=== PATIENT | male | born 1955 | race Caucasian/White ===

== ENCOUNTER → 2018-09-03 | Day surgery (SDC) | payer BC ==
[~2018-09-03] VITALS: Ht 171.4 cm; Wt 96.2 kg
[~2018-09-03] MED LIST: ASPI81TA50 PO; ATOR20TA58 PO; BUPIVACAINE-EPI 0.5%-1:200000 50 ML VIAL. ONE; DEXAMETHASONE SOD PHOS 20 MG/5 ML VIAL. ONE; FEXO180T16 PO; GLUCOSAMINE 1,1 EACH PO; HYDR-971 PO; HYDR200T5 PO; HYDROcodone/APAP 5/325MG 1 TAB TABLET ONE; HYDROcodone/APAP 5/325MG 1 TAB TABLET PO PRN; HYDROmorphone 2 MG/ML VIAL IV PRN; IV RINGERS,LACTATED 1000ML 1,000 ML IV SCH; KETOROLAC 30 MG/ML INJ FOR OR. INJ ONE; LIDOCAINE 1% PF 2 ML VIAL. ID PRN; LOSA25TA5 PO; MORPHINE SULFATE 2 MG/ML VIAL. IV PRN; MULT1TAB52 PO; OMEG-165 PO; ONDANSETRON PF 4 MG/2 ML VIAL. IV PRN; ONDANSETRON PF 4 MG/2 ML VIAL. ONE; PRED5TAB PO; PROCHLORPERAZINE 10 MG/2 ML VIAL. IV PRN; PROPOFOL 20 ML IV ONE; ROCURONIUM 50 MG/5 ML VIAL. ONE; SEVOFLURANE 31 TO 60 MINUTES. IH ONE; TRIA1TAB3 PO; VITA400C36 PO; ePHEDrine PF IN SALINE 50 MG/5 ML DISP.SYRIN IV ONE; fentaNYL PF VIAL 100 MCG/2 ML VIAL IV PRN; fentaNYL PF VIAL 100 MCG/2 ML VIAL ONE
--- NOTE | 2018-09-03 10:36 | PDOC4 ---
Operative Note Operative Note Date: 09/03/2018 Preoperative diagnosis: Umbilical hernia Postoperative diagnosis: Same Procedure: Umbilical hernia repair Surgeon: Nelson Specimen: None Dictation: Patient is a 62-year-old gentleman complaining of a painful bulge at his umbilicus procedure of umbilical hernia repair was explained to the patient detail was benefits were also discussed including bleeding infection alternatives to this procedure also discussed with the patient seemed understanding gave both verbal and written consent to have the procedure performed. Patient was taken to the operating room placed in supine position general anesthesia was initiated once patient was asleep and intubated his abdomen was prepped and draped usual sterile fashion using ChloraPrep. An area around the umbilicus injected with quarter percent Marcaine with epinephrine incision made 15 blade scalpel was carried down through the subtendinous tissue using electrocautery right hemostasis down to the fascia. The incarcerated omentum was returned to the abdomen and the fascia was closed with 0 Vicryl suture in a far near near far fashion. The subcutaneous layer was closed with a running 3-0 Vicryl and the skin was approximate 4 septic Monocryl mass all Steri -Strips and island dressings were applied. Patient was waken expanded in the operating room taken recovery in stable condition all sponge instrument needle counts listed as correct estimated blood loss 5 mL PAM CAMERON MD Sep 03, 2018 10:36
--- NOTE | 2018-09-03 10:37 | DISCH ---
DISCHARGE INSTRUCTIONS Condition on Discharge Condition on Discharge: Stable Activity After Discharge Activity Instructions for Disc: Avoid exertion Other activity instructions: no lifting more than 20 pounds for 2 weeks Diet after Discharge Diet after Discharge: Regular Wound Incision Care Other wound/incision instructi: May shower in 24 hours Contacting the DRAlfonso after DC Call your doctor for: If your condition worsens Follow-Up Follow up with: Dr. Cameron in 2 weeks PAM CAMERON MD Sep 03, 2018 10:37
[2018-09-03 11:40] VITALS: BP 142/73
== END | disposition home or self-care (01) ==
LOC: SURG 08:29
PROVIDERS: ATTEND Surgery
DX: K42.0 Umbilical hernia with obstruction, without gangrene (principal); I10 Essential (primary) hypertension; E11.21 Type 2 diabetes mellitus with diabetic nephropathy; Z98.890 Other specified postprocedural states; Z87.891 Personal history of nicotine dependence; Z72.89 Other problems related to lifestyle; Z79.84 Long term (current) use of oral hypoglycemic drugs; Z79.82 Long term (current) use of aspirin; Z79.899 Other long term (current) drug therapy
CPT/HCPCS: 49587; A7015; J0690; J1100; J1885; J2405; J2704; J3010

== ENCOUNTER 2021-09-27 10:31 | Day surgery (SDC) | payer MEDICARE, BC ==
[~2021-09-27] VITALS: Ht 171.4 cm; Wt 92.5 kg
[~2021-09-27 10:31] MED LIST changes: -BUPIVACAINE-EPI 0.5%-1:200000 50 ML VIAL. ONE; -DEXAMETHASONE SOD PHOS 20 MG/5 ML VIAL. ONE; +HYDR-3164 PO; -HYDR-971 PO; -HYDROcodone/APAP 5/325MG 1 TAB TABLET ONE; -HYDROcodone/APAP 5/325MG 1 TAB TABLET PO PRN; -HYDROmorphone 2 MG/ML VIAL IV PRN; +HYDROmorphone 2 MG/ML VIAL IVP PRN; -KETOROLAC 30 MG/ML INJ FOR OR. INJ ONE; -LIDOCAINE 1% PF 2 ML VIAL. ID PRN; -LOSA25TA5 PO; +LOSA25TA54 PO; +MORPHINE SULFATE 2 MG/ML INJ. IVP PRN; -MORPHINE SULFATE 2 MG/ML VIAL. IV PRN; +MULT-445 PO; -MULT1TAB52 PO; -ONDANSETRON PF 4 MG/2 ML VIAL. IV PRN; -ONDANSETRON PF 4 MG/2 ML VIAL. ONE; -PROCHLORPERAZINE 10 MG/2 ML VIAL. IV PRN; +PROCHLORPERAZINE 10 MG/2 ML VIAL. IVP PRN; -PROPOFOL 20 ML IV ONE; -ROCURONIUM 50 MG/5 ML VIAL. ONE; -SEVOFLURANE 31 TO 60 MINUTES. IH ONE; +VITA-8 PO; -VITA400C36 PO; -ePHEDrine PF IN SALINE 50 MG/5 ML DISP.SYRIN IV ONE; -fentaNYL PF VIAL 100 MCG/2 ML VIAL IV PRN; +fentaNYL PF VIAL 100 MCG/2 ML VIAL IVP PRN; -fentaNYL PF VIAL 100 MCG/2 ML VIAL ONE
[2021-09-27] MEDS ORDERED: PROPOFOL 10 MG/ML (20ML) VIAL. IV ONE ×2 (10:52→10:55)
[2021-09-27] MEDS ORDERED: ONDANSETRON PF 4 MG/2 ML VIAL. ONE (10:55)
[2021-09-27] MEDS ORDERED: DEXAMETHASONE SOD PHOS 4 MG/ML VIAL ONE (10:55)
[2021-09-27] MEDS ORDERED: LIDOCAINE 2% PF 5 ML VIAL. ONE (10:55)
[2021-09-27] MEDS ORDERED: HYDROmorphone 2 MG/ML VIAL ONE (10:56)
[2021-09-27 11:07] VITALS: BP 145/70
[2021-09-27] MEDS ORDERED: HYDR-2145 PO (11:13)
[2021-09-27] MEDS ORDERED: BUPIVACAINE MPF 0.25% 30 ML VIAL. ONE (12:38)
[2021-09-27] MEDS ORDERED: BACITRACIN TOPICAL OINT PACKET. TP ONE (12:38)
[2021-09-27] MEDS ORDERED: BUPIVACAINE MPF 0.25% 10 ML VIAL. INJ ONE (13:14)
[2021-09-27] MEDS ORDERED: fentaNYL PF VIAL 100 MCG/2 ML VIAL ONE (15:30)
[2021-09-27] MEDS ORDERED: OXYC-325 PO (15:42)
[2021-09-27] MEDS ORDERED: GABA300C18 PO (15:42)
[2021-09-27] MEDS ORDERED: CEPH500C PO (15:42)
[2021-09-27 15:54] VITALS: BP 118/67
--- NOTE | 2021-10-01 23:09 | PDOC4 ---
OPERATIVE NOTE Date: Date: Sep 27, 2021 Pre-Op Diagnosis: Bilateral carpal tunnel syndrome and right cubital tunnel syndrome Post-Op Diagnosis: Same Procedure Performed: 1. Right carpal tunnel release, CPT 62240 x one unit 2. Right cubital tunnel release, CPT 37732 x one unit Surgeon: Anne Sanchez MD Anesthesia Type: MAC + local Blood Loss: 20mL Specimans Obtained: None Findings: See operative note Complications: See operative note Operative Note: Indications This is a patient with a longstanding history of moderate to severe bilateral carpal tunnel syndrome and right cubital tunnel syndrome with no response to conservative management. The patient underwent informed consent discussing the benefits, alternatives, and risks including but not limited to the risks of bleeding, infection, persistent pain postoperatively, incomplete release, injury to nerves/vessels/tendons, need for revision procedures. Procedure After informed consent was verified, the patient was taken to the operating room and placed on the OR table in the supine position. The right forearm was extended and supinated on the hand table. A timeout was performed verifying the correct patient and correct procedure. MAC sedation was provided by the anesthesia team. The patient was prepped and draped in the usual sterile fashion. A sterile tourniquet was placed and inflated to 100 mmHg higher than the patient's average systolic pressure. The hand was placed in a lead hand. The carpal tunnel was injected with 1% lidocaine with 1: 100,000 epinephrine. The skin was incised with a #15 scalpel for approximately 3 cm just ulnar to the thenar crease in the intersection of the Villa's line and the radial border of the ring finger. The incision was carried proximally and just distal to the flexion wrist crease. Tenotomy scissors were used to longitudinally spread the subcutaneous tissues and through the superficial palmar fascia to expose the transverse carpal ligament. A #15 scalpel was used to make a small longitudinal incision in the carpal tunnel. The median nerve was identified. A Midland elevator was inserted into the small incision in the carpal tunnel to depress the median nerve. Tenotomy scissors were then inserted in the incision of the transverse carpal ligament. Division of the ligament proceeded from proximal to distal up to the adipose tissue of the superficial palmar arch. Care was taken to avoid injury to the superficial palmar arch. Attention was then turned proximally where a right angle retractor was placed to retract soft tissues above the proximal portion of the transverse carpal ligament. The Midland elevator was again inserted and advanced proximally to depress the nerve. Tenotomy scissors were then used to release the proximal transverse carpal ligament until full opening of the tunnel was observed under direct vision. The wound was irrigated with saline and was reexamined prior to closure. At that time it was noted that there was a laceration of the median nerve with exposed fascicles limited anteriorly. An epineurial repair was performed with 6-0 Prolene suture in interrupted fashion. Attention was then turned to right cubital tunnel. The right arm was bent at the elbow, externally rotated, abducted, and a longitudinal line was redrawn between the tip of the olecranon and medial epicondyle extending 4 cm proximally and 4 cm distally. A #15 scalpel was used to incise the 8 cm incision which was drawn midway between the medial epicondyle and the olecranon. Dissection through the subcutaneous tissues and fat was deepened down to the level of the medial epicondyle while paying careful attention to preserve the medial antebrachial cutaneous nerve. The ulnar nerve was identified below the intermuscular septum proximal to the medial epicondyle. The septum was entered and retracted and the ulnar nerve was dissected free proximally up to the point that it pierced the intermuscular septum. The arcade of [place] was also divided proximally. Dissection then turned distally where the fibroaponeurotic coverings and cubital tunnel retinaculum were divided. The dissection proceeded deeply through the fascia of the superficial and deep flexor carpi ulnaris heads, exposing the nerve. Care was taken to prevent injury to the ulnar nerve and the motor branches to the flexor carpi ulnaris and flexor digitorum profundus. The fascia of the flexor carpi ulnaris muscle was released. Distally, the pronator and flexor digitorum superficialis arch fascia were also incised to relieve any compression on the ulnar nerve. The area was palpated to confirm that the ulnar nerve was free from compression with minimal traction. Range of motion of the elbow indicated no snapping over the medial epicondyle. The tourniquet was released and total tourniquet time recorded. The wounds were irrigated. Hemostasis was achieved with electrocautery. The incisions were then closed with 4-0 nylon interrupted horizontal mattress sutur es. Incisions were covered with bacitracin, Xeroform, and gauze. A dorsal blocking splint made of plaster was fashioned and secured in place with soft roll and an Edi bandage. The arm was placed in a sling. The patient tolerated the procedure well and was taken to the recovery room in stable condition. All needle, instrument, and sponge counts were correct. ANNE SANCHEZ MD Oct 01, 2021 23:09
== END 2021-09-27 16:41 | disposition home or self-care (01) ==
LOC: SURG 10:31
PROVIDERS: ATTEND Plastic Surgery
DX: G56.21 Lesion of ulnar nerve, right upper limb (principal); G56.03 Carpal tunnel syndrome, bilateral upper limbs; I12.9 Hypertensive chronic kidney disease with stage 1 through stage 4 chronic kidney disease, or unspecified chronic kidney disease; N18.9 Chronic kidney disease, unspecified; E78.00 Pure hypercholesterolemia, unspecified; I73.9 Peripheral vascular disease, unspecified; Z79.899 Other long term (current) drug therapy; Z98.890 Other specified postprocedural states; Z72.89 Other problems related to lifestyle; Z87.891 Personal history of nicotine dependence
CPT/HCPCS: 64718; 64721; A4930; A6402; J0690; J1100; J1170; J2405; J2704; J3010; J3490; A4657; A6443; A6452

== ENCOUNTER → 2021-12-10 | Outpatient (CLI) | payer MEDICARE, BC ==
[~2021-12-10] MED LIST changes: +CEPH500C PO; +GABA300C18 PO; +HYDR-2145 PO; -HYDROmorphone 2 MG/ML VIAL IVP PRN; -IV RINGERS,LACTATED 1000ML 1,000 ML IV SCH; -MORPHINE SULFATE 2 MG/ML INJ. IVP PRN; +OXYC-325 PO; -PROCHLORPERAZINE 10 MG/2 ML VIAL. IVP PRN; -fentaNYL PF VIAL 100 MCG/2 ML VIAL IVP PRN
--- NOTE | 2021-12-11 12:29 | SLEEP ---
DATE OF STUDY: 12/10/2021 HOME SLEEP STUDY ATTENDING PHYSICIAN: Merlin Tompkins MD The patient is a 66-year-old who weighs 205 pounds with a BMI of 33. The patient underwent home sleep study performed at [facility]. Total recording time was 523 minutes. During the night study, the patient had 23 obstructive apneas, 32 mixed apneas, 106 central apneas and 65 hypopneas. The patient's AHI was 27 per hour. Nocturnal oximetry study revealed an average oxygen saturation 93% with lowest of 79%. 27 minutes were spent with oxygen saturation of less than 90% and 3 minutes with saturation less than 85%. Mean heart rate 63 beats per minute. IMPRESSION: 1. Moderate obstructive sleep apnea at an apnea-hypopnea index of 27 per hour. 2. Nocturnal hypoxia secondary to obstructive sleep apnea. RECOMMENDATIONS: 1. The patient would benefit from treatment of sleep apnea with CPAP. This can be done as an in-lab CPAP titration versus home auto CPAP. 2. Once the patient is optimally treated with CPAP, then follow up in 4-6 weeks to assess compliance and to document clinical improvement. 3. Weight loss is advised. 4. Avoid [employer]OR depressants. 5. Cautioned regarding driving until symptoms of sleep apnea resolve with the use of CPAP. MELY DR: Caleb TID: [id number] CC: MERLIN TOMPKINS MD
== END ==
LOC: RT 09:24
PROVIDERS: ATTEND Family Medicine
DX: G47.33 Obstructive sleep apnea (adult) (pediatric) (principal); G47.34 Idiopathic sleep related nonobstructive alveolar hypoventilation
CPT/HCPCS: G0399